=== PATIENT | male | born 1990 | race Caucasian/White ===

== ENCOUNTER 2016-09-07 15:10 | Emergency (ER) | payer OTHER ==
[~2016-09-07] VITALS: Ht 180.3 cm; Wt 62.1 kg
[2016-09-07 15:15] VITALS: TEMP 37.1; Ht 180.3 cm; Wt 62.1 kg
[2016-09-07] MEDS ORDERED: OMEG10007 PO (15:41)
[2016-09-07] MEDS ORDERED: PROPARACAINE HCL 0.5% OP SOLN 15 ML BTL OP STA (15:43)
[2016-09-07] MEDS ORDERED: KETOROLAC TROMETHAMINE 30 MG/ML VIAL IV STA (15:43)
[2016-09-07] MEDS ORDERED: AMPICILLIN/SULBACTAM SOD INJ 3,000 MG in SODIUM CHLORIDE 0.9% 100ML 100 ML IV ONE (15:45)
--- NOTE | 2016-09-07 15:52 | EMERGENCY ROOM VISIT NOTE ---
History First contact with patient: 15:31 Chief Complaint: EYE ASSESSMENT Stated Complaint: SERIOUS EYE INFECTION-SENT TO ER BY URGENT CARE History of Present Illness The patient is a 26 year old male who presents to the Emergency Room with complaints of right eye pain, swelling and drainage. The patient states that a few days ago he noticed what he thought was a pimple beneath the left eye and he squeezed it and it got better. The patient states that 2 days ago he noticed swelling to the right eye. He states that there is discharge in the eye is crusted shut in the morning. He denies any fevers or chills. He denies any decreased vision. He rates his discomfort a 10/10. He states it hurts to move his eyes. He denies any injury. He denies any chest pain or trouble breathing. He does not wear contacts. Review of Systems A 10 system review of systems was completed with positives and pertinent negatives listed in the HPI. Past Medical/Surgical History Medical Problems: (1) Hypertension Family History Hypertension Social History Smoking Status: Former Smoker Alcohol Use: none Marital Status: single Housing Status: lives with family Occupation Status: unemployed Current/Historical Medications Scheduled Amoxicillin & Pot Clavulanate (Augmentin 875-125 mg), 1 TAB PO BID Fish Oil ([place]-3), 1 CAP PO DAILY Allergies Coded Allergies: No Known Allergies (Unverified , 02/09/12) Physical Exam Vital Signs Date Time Temp Pulse Resp B/P Pulse Ox O2 Delivery O2 Flow Rate FiO2 09/07/16 16:41 78 16 116/66 97 Room Air 09/07/16 15:15 37.1 83 20 125/82 98 Room Air Right Eye Acuity: 20/20 Left Eye Acuity: 20/20 Physical Exam VITALS: Vitals are noted on the nurse's note and reviewed by myself. Vital signs stable. The patient is afebrile. GENERAL: This is a 26-year-old male, in no acute distress, nondiaphoretic, well- developed well-nourished. SKIN: There is no tenting of the skin. Capillary reflex less than 2 seconds. HEAD: Normocephalic atraumatic. EARS: External auditory canals clear, tympanic membranes pearly byrd without erythema or effusion bilaterally. EYES: There is right orbital edema, erythema and tenderness. The conjunctiva is injected. There is chemosis. There is purulent discharge. There is no hyphema or hypopyon. The patient reports pain with movement of the right eye. The left eye is normal. NOSE: Patent, turbinates without inflammation or discharge. No sinus tenderness. MOUTH: Mucous membranes moist. Tonsils are not enlarged. Pharynx without erythema or exudate. Uvula midline. Airway patent. Tongue does not deviate. NECK: Supple without nuchal rigidity. No lymphadenopathy. No thyromegaly. Cervical spine is nontender. No JVD. HEART: Regular rate and rhythm without murmurs gallops or rubs. LUNGS: Clear to auscultation bilaterally without wheezes, rales or rhonchi. No retractions or accessory muscle use. MUSCULOSKELETAL: No muscle atrophy, erythema, or edema noted. Full range of motion in all extremities. Normal gait. Strength 5/5 throughout. NEURO: Patient was alert and oriented to person place and time. No focal neurological deficits. Medical Decision & Procedures ER Provider Diagnostic Interpretation: CT OF THE ORBITS WITH CONTRAST CT DOSE: 425.24 mGycm CLINICAL HISTORY: Eye infection. Evaluate for orbital cellulitis. TECHNIQUE: Axial images of the orbits were obtained following intravenous injection of 94 cc Optiray 320 IV. Sagittal and coronal reconstructions were viewed. COMPARISON STUDY: Head CT October 14, 2015. FINDINGS: Visualized portions of the intracranial contents are unremarkable. There is mild polypoid mucosal thickening of the maxillary sinuses. There is no CT evidence for acute sinusitis. There is moderate right preseptal infiltration and edema consistent with cellulitis. There is no postseptal component. There is no rim-enhancing fluid collection to suggest an abscess. The globes are intact. Major vasculature of the upper neck is patent. Mastoid air cells are clear. IMPRESSION: Moderate right preseptal infiltration and edema consistent with preseptal sinusitis. No postseptal component. No rim enhancing fluid collection to suggest abscess. Laboratory Results 09/07/16 15:50 Red Blood Count 5.18, Mean Corpuscular Volume 84.7, Mean Corpuscular Hemoglobin 30.7, Mean Corpuscular Hemoglobin Concent 36.2, Mean Platelet Volume 9.3, Neutrophils (%) (Auto) 73.8, Lymphocytes (%) (Auto) 18.4, Monocytes (%) (Auto) 6.5, Eosinophils (%) (Auto) 0.9, Basophils (%) (Auto) 0.2, Neutrophils # (Auto) 7.09, Lymphocytes # (Auto) 1.77, Monocytes # (Auto) 0.63, Eosinophils # (Auto) 0.09, Basophils # (Auto) 0.02 09/07/16 15:50 Test 09/07/16 15:44 09/07/16 15:50 Bedside Hemoglobin 15.6 g/dl (14.0-18.0) Bedside Hematocrit 46 % (42-52) Bedside Sodium 141 mEq/L (135-144) Bedside Potassium 4.1 mEq/L (3.3-5.0) Bedside Chloride 99 mEq/L (101-112) Bedside Total CO2 28 mEq/l (24-31) Bedside Blood Urea Nitrogen 10 mg/dl (7-18) Bedside Creatinine 0.8 mg/dl (0.6-1.3) Bedside Glucose (other) 100 mg/dl (70-99) Bedside Ionized Calcium (Carisa) 1.18 mmol/l (1.12-1.32) White Blood Count 9.62 K/uL (4.8-10.8) Red Blood Count 5.18 M/uL (4.7-6.1) Hemoglobin 15.9 g/dL (14.0-18.0) Hematocrit 43.9 % (42-52) Mean Corpuscular Volume 84.7 fL (80-100) Mean Corpuscular Hemoglobin 30.7 pg (25-34) Mean Corpuscular Hemoglobin Concent 36.2 g/dl (32-36) Platelet Count 207 K/uL (130-400) Mean Platelet Volume 9.3 fL (7.4-10.4) Neutrophils (%) (Auto) 73.8 % Lymphocytes (%) (Auto) 18.4 % Monocytes (%) (Auto) 6.5 % Eosinophils (%) (Auto) 0.9 % Basophils (%) (Auto) 0.2 % Neutrophils # (Auto) 7.09 K/uL (1.4-6.5) Lymphocytes # (Auto) 1.77 K/uL (1.2-3.4) Monocytes # (Auto) 0.63 K/uL (0.11-0.59) Eosinophils # (Auto) 0.09 K/uL (0-0.5) Basophils # (Auto) 0.02 K/uL (0-0.2) RDW Standard Deviation 39.6 fL (36.4-46.3) RDW Coefficient of Variation 12.8 % (11.5-14.5) Immature Granulocyte % (Auto) 0.2 % Immature Granulocyte # (Auto) 0.02 K/uL (0.00-0.02) Anion Gap 10.0 mmol/L (3-11) Est Creatinine Clear Calc Drug Dose 119.1 ml/min Estimated GFR () 142.0 Estimated GFR (Non- 122.6 BUN/Creatinine Ratio 11.3 (10-20) Calcium Level 9.3 mg/dl (8.5-10.1) Total Bilirubin 0.9 mg/dl (0.2-1) Aspartate Amino Transf (AST/SGOT) 19 U/L (15-37) Alanine Aminotransferase (ALT/SGPT) 38 U/L (12-78) Alkaline Phosphatase 96 U/L (45-117) Total Protein 7.7 gm/dl (6.4-8.2) Albumin 4.2 gm/dl (3.4-5.0) Globulin 3.5 gm/dl (2.5-4.0) Albumin/Globulin Ratio 1.2 (0.9-2) Medications Administered Medications (Trade) Dose Ordered Sig/Ruthie Route Start Time Stop Time Status Last Admin Dose Admin Ampicillin Sodium/ Sulbactam Sodium/ Sodium Chloride (Unasyn Inj/Nss 100ml) 108 ml @ 200 mls/hr ONE ONCE IV 09/07/16 15:45 09/07/16 16:17 DC 09/07/16 16:03 200 MLS/HR Proparacaine HCl (Alcaine 0.5% Oph Soln) 2 drops NOW STAT OP 09/07/16 15:43 09/07/16 15:48 DC 09/07/16 16:03 2 DROPS Ketorolac Tromethamine (Toradol Inj) 30 mg NOW STAT IV 09/07/16 15:43 09/07/16 15:48 DC 09/07/16 16:03 30 MG Erythromycin (Erythromycin Oph Oint) 1 appln TID STAT OP 09/07/16 16:19 09/07/16 16:21 DC 09/07/16 17:07 1 APPLN Procedure The slit lamp was used to examine the right eye. There is no hyphema or hypopyon. There is chemosis and conjunctival injection. There is purulent discharge. There is no stye. There is no uptake of fluorescein. Intraocular pressure in the right is 19.8 and 21 in the left by auto tonometer ED Course The patient was seen and examined. Previous visits were reviewed. He does not have a fever or leukocytosis. He does not have any significant electrolyte abnormality. CT of the orbits with contrast reveals preseptal cellulitis but no evidence for orbital cellulitis The patient was given IV Unasyn Alcaine drops were instilled into the right eye with mild improvement in the pain He was given 30 mg IV Toradol He was given erythromycin ointment The patient's pain and swelling had markedly improved at the time of discharge The patient has had conjunctivitis, purulent drainage and what appears to be a preseptal cellulitis. The patient is nontoxic in appearance. He does not have fever or leukocytosis. There is no evidence for orbital cellulitis on CT imaging. The patient will be placed on Augmentin, erythromycin ointment. He is encouraged to take anti-inflammatories for pain and swelling. He could try cool compresses. He should return to the emergency department immediately with any fevers, worsening swelling, worsening pain or generalized worsening symptoms. The case was discussed with Dr. Bahena who agrees with the assessment and treatment plan Medical Decision The differential diagnosis includes periorbital cellulitis, orbital cellulitis, conjunctivitis, hypopyon, hyphema, chalazion, stye, among others Impression Primary Impression: Preseptal cellulitis of right eye Additional Impression: Conjunctivitis Departure Information Dispostion Home / Self-Care Condition GOOD Prescriptions Amoxicillin & Pot Clavulanate (Augmentin 875-125 mg) 1 Tab Tab 1 TAB PO BID for 7 Days, #14 TAB Prov: Madison Vernon PA-C 09/07/16 Referrals No Doctor, Assigned (PCP) Patient Instructions Conjunctivitis Infec Cause, ED Cellulitis Facial, My [facility] Additional Instructions Erythromycin ointment 1/4 cm ribbon to the lower eyelid every 8 hours for 5 days Augmentin 1 tablet every 12 hours for 7 days Return to the emergency Department with any worsening redness, swelling, warmth , fevers, difficulty with vision Otherwise, recheck with your family doctor next week if symptoms are not improving Problem Qualifiers Additional Impression: Conjunctivitis Conjunctivitis type: acute Acute conjunctivitis type: bacterial Laterality : right Qualified Codes: H10.31 - Unspecified acute conjunctivitis, right eye
[2016-09-07] MEDS ORDERED: OPTIRAY 320 IV PRN (16:00)
[2016-09-07 16:06] LABS: BASO % 0.2 %; BASO ABS # 0.02 K/uL (0-0.2); COMPLETE YES; EOS % 0.9 %; HEMATOCRIT 43.9 % (42-52); IG% 0.2 %; LYMPH % 18.4 %; LYMPH ABS # 1.77 K/uL (1.2-3.4); MEAN CELL VOLUME 84.7 fL (80-100); MEAN CORPUSCULAR HEMOGLOBIN 30.7 pg (25-34); MEAN CORPUSCULAR HGB CONC 36.2 g/dl (32-36); MEAN PLATELET VOLUME 9.3 fL (7.4-10.4); MONO % 6.5 %; NEUT % 73.8 %; PLATELET COUNT 207 K/uL (130-400); RED BLOOD COUNT 5.18 M/uL (4.7-6.1); WHITE BLOOD COUNT 9.62 K/uL (4.8-10.8)
[2016-09-07 16:09] LABS: ISTAT CREATININE 0.8 mg/dl (0.6-1.3); ISTAT HEMOGLOBIN 15.6 g/dl (14.0-18.0); ISTAT IONIZED CALCIUM 1.18 mmol/l (1.12-1.32)
[2016-09-07] MEDS ORDERED: ERYTHROMYCIN OP OINT 5 MG/GM 3.5 GM TUBE OP STA (16:19)
[2016-09-07 16:25] LABS: BUN/CREATININE RATIO 11.3 (10-20); CALCIUM 9.3 mg/dl (8.5-10.1); CREATININE 0.84 mg/dl (0.60-1.40)
[2016-09-07 16:27] LABS: ALB/GLOB RATIO 1.2 (0.9-2)
[2016-09-07 16:41] VITALS: BP 116/66; PULSE 78; O2SAT 97
--- NOTE | 2016-09-07 16:55 | DIAGNOSTIC IMAGING REPORT ---
CT OF THE ORBITS WITH CONTRAST CT DOSE: 425.24 mGycm CLINICAL HISTORY: Eye infection. Evaluate for orbital cellulitis. TECHNIQUE: Axial images of the orbits were obtained following intravenous injection of 94 cc Optiray 320 IV. Sagittal and coronal reconstructions were viewed. COMPARISON STUDY: Head CT October 14, 2015. FINDINGS: Visualized portions of the intracranial contents are unremarkable. There is mild polypoid mucosal thickening of the maxillary sinuses. There is no CT evidence for acute sinusitis. There is moderate right preseptal infiltration and edema consistent with cellulitis. There is no postseptal component. There is no rim-enhancing fluid collection to suggest an abscess. The globes are intact. Major vasculature of the upper neck is patent. Mastoid air cells are clear. IMPRESSION: Moderate right preseptal infiltration and edema consistent with preseptal sinusitis. No postseptal component. No rim enhancing fluid collection to suggest abscess. Electronically signed by: Александр Williamson M.D. 09/07/2016 4:53 PM Dictated Date/Time: 09/07/2016 4:45 PM
[2016-09-07] MEDS ORDERED: AMOX875T PO (17:06)
[2016-09-08] MEDS ORDERED: HYDR-5688 PO (01:47)
[2016-09-08] MEDS ORDERED: SULF800T23 PO (01:47)
[2016-09-12] MEDS ORDERED: CLIN300C2 PO (11:15)
== END 2016-09-07 17:09 | disposition home or self-care (01) ==
LOC: C.EDB 15:12 → C.EDD 17:09
DX: L03.211 Cellulitis of face (principal); H10.31 Unspecified acute conjunctivitis, right eye; I10 Essential (primary) hypertension; Z87.891 Personal history of nicotine dependence; Z82.49 Family history of ischemic heart disease and other diseases of the circulatory system

== ENCOUNTER 2016-09-08 00:08 | Emergency (ER) | payer OTHER ==
[~2016-09-08] VITALS: Ht 180.3 cm; Wt 63.3 kg
[~2016-09-08 00:08] MED LIST: AMOX875T PO; OMEG10007 PO
[2016-09-08 00:12] VITALS: TEMP 37.2; Ht 180.3 cm; Wt 63.3 kg
[2016-09-08] MEDS ORDERED: HYDROCODONE/ACETAMINOPHEN 7.5/325MG TAB PO STA (00:26)
[2016-09-08] MEDS ORDERED: KETOROLAC TROMETHAMINE 60 MG/2 ML VIAL IM STA (00:26)
[2016-09-08] MEDS ORDERED: SULFAMETHOXAZOLE/TRIMETHOPRIM DS 800/160MG TAB PO STA (00:32)
--- NOTE | 2016-09-08 00:33 | EMERGENCY ROOM VISIT NOTE ---
History Report prepared by Scribe: Romina Irene Under the Supervision of: Dr. Kira Swanson M.D. First contact with patient: 00:21 Chief Complaint: EYE PAIN Stated Complaint: EYE PAIN History of Present Illness The patient is a 26 year old male who presents to the Emergency Room with complaints of worsening right eye pain that began 2 days ago. He describes the pain as a hot knife in his eye. Both his eye and periorbital area are in pain. The pain is worse with movement of his eye and opening his eyelid. He also complains of right eye swelling. The patient went to [facility] initially yesterday for evaluation and was sent to the ER. He had a full eye examination in the ER including an orbit CT and had IV antibiotics. He was diagnosed with preseptal cellulitis of the eye and conjunctivitis. He was discharged home with erythromycin ointment and Augmentin. His pain was a 10/10 when he came to the ED yesterday and improved to an 8/10. Currently, his pain is greater than a 10/ 10. He does not have any known allergies. He denies any trauma to his eye. Source of History: patient Onset: 2 days ago Position: eye (right) Symptom Intensity: greater than 10/10 Quality: other (hot knife) Timing: worsening Modifying Factors (Worsening): movement (of eye ), other (opening eyelid) Note: Other symptoms: right eye swelling Review of Systems See HPI for pertinent positives & negatives. A total of 10 systems reviewed and were otherwise negative. Past Medical & Surgical Medical Problems: (1) Hypertension Family History Hypertension Social History Smoking Status: Never Smoker Alcohol Use: none Marital Status: single Housing Status: lives with family Occupation Status: unemployed Current/Historical Medications Scheduled Amoxicillin & Pot Clavulanate (Augmentin 875-125 mg), 1 TAB PO BID Fish Oil ([place]-3), 1 CAP PO DAILY Sulfa/Trimethoprim (Bactrim Ds 800MG/160MG), 1 TAB PO BID Scheduled PRN Hydrocodone/Acetaminophen 5MG/325MG ([place] 5MG/325MG), 1 TABLET PO Q4 PRN for Pain Allergies Coded Allergies: No Known Allergies (Unverified , 02/09/12) Physical Exam Vital Signs Date Time Temp Pulse Resp B/P Pulse Ox O2 Delivery O2 Flow Rate FiO2 09/08/16 01:54 70 18 134/77 99 Room Air 09/08/16 00:12 37.2 86 18 128/83 97 Room Air Physical Exam Vital signs reviewed. General: Well-appearing 26 year old male, in no significant distress. HEENT: Periorbital erythema and right eyelid swelling with no exudates appreciated. Extraocular muscles are intact. Some discomfort with upward gaze. Mild swelling of the lower left eyelid. No scleral icterus, PERRLA, neck supple. Atraumatic. Cardiovascular: Regular rate and rhythm, no extra sounds. Pulmonary: Clear to auscultation bilaterally, normal work of breathing. Abdomen: Soft, nontender, nondistended, positive bowel sounds. Musculoskeletal: Atraumatic, no peripheral edema. Neurologic: Patient awake alert and oriented x 3, full strength in all 4 extremities. Cranial nerves 2 through 12 grossly intact. Skin: Warm, dry, no rash Medical Decision & Procedures Medications Administered Medications (Trade) Dose Ordered Sig/Ruthie Route Start Time Stop Time Status Last Admin Dose Admin Ketorolac Tromethamine (Toradol Inj) 60 mg NOW STAT IM 09/08/16 00:26 09/08/16 00:29 DC 09/08/16 00:47 60 MG Acetaminophen/ Hydrocodone Bitart (Chalmers 7.5/325 Tab) 1 tab NOW STAT PO 09/08/16 00:26 09/08/16 00:29 DC 09/08/16 00:46 1 TAB Trimethoprim/ Sulfamethoxazole (Septra Ds 800/ 160MG Tab) 1 tab NOW STAT PO 09/08/16 00:32 09/08/16 00:33 DC 09/08/16 00:46 1 TAB ED Course 0027: Past medical records reviewed. The patient was evaluated in room B7. A complete history and physical examination was performed. Ordered Acetaminophen/ Hydrocodone Bitart 1 tab PO, Toradol Inj 60 mg IM, Trimethoprim/ Sulfamethoxazole 1 tab PO. 0140: Upon reevaluation, the patient is feeling better. I discussed findings with the patient. He verbalized agreement of the treatment plan. The patient was discharged home. Medical Decision Differential includes facial cellulitis, corneal abrasion, intraocular infection , preseptal cellulitis, postseptal cellulitis, orbital abscess. This patient was evaluated and appeared to be in no significant distress. Physical examination reveals a cellulitis of the right periorbital region. Extraocular muscles are intact. The patient had a full workup including a slit- lamp exam and CT scan earlier today. He was given IM Toradol and hydrocodone tablet for his pain. The patient was discharged on Augmentin after receiving IV Unasyn. Bactrim DS 1 tablet twice daily for 7 days will be added. The patient was given a short course of hydrocodone/APAP for his pain. He will follow-up with his primary care provider this week for reevaluation and return to the ER for worsening of symptoms or any medical concerns. Impression Primary Impression: Preseptal cellulitis of right eye Scribe Attestation The scribe's documentation has been prepared under my direction and personally reviewed by me in its entirety. I confirm that the note above accurately reflects all work, treatment, procedures, and medical decision making performed by me. Departure Information Dispostion Home / Self-Care Prescriptions Hydrocodone/Acetaminophen 5MG/325MG ([place]mers 5MG/325MG) Tab 1 TABLET PO Q4 Y for Pain, #14 TAB Prov: Kira Swanson M.D. 09/08/16 Sulfa/Trimethoprim (Bactrim Ds 800MG/160MG) Tab 1 TAB PO BID, #14 TAB Prov: Kira Swanson M.D. 09/08/16 Referrals No Doctor, Assigned (PCP) Patient Instructions [facility] Additional Instructions Diagnosis: Preseptal cellulitis Continue Augmentin 875 mg twice daily as prescribed. Bactrim DS 1 tablet twice daily for 7 days. Chalmers one tablet every 4 hours as needed for severe pain. Do not drive or take Tylenol with this medication. Drink plenty of fluids. Follow-up with your primary care physician this week for reevaluation return to the ER for worsening of symptoms or any medical concerns.
[2016-09-08] MEDS ORDERED: SULF800T23 PO ×2 (01:47)
[2016-09-08] MEDS ORDERED: HYDR-5688 PO ×2 (01:47)
[2016-09-08 01:54] VITALS: BP 134/77; PULSE 70; O2SAT 99
[2016-09-12] MEDS ORDERED: CLIN300C2 PO ×2 (11:15)
== END 2016-09-08 02:02 | disposition home or self-care (01) ==
LOC: C.EDB 00:09
DX: L02.01 Cutaneous abscess of face (principal); I10 Essential (primary) hypertension; Z79.899 Other long term (current) drug therapy; Z82.49 Family history of ischemic heart disease and other diseases of the circulatory system

== ENCOUNTER 2016-09-10 15:29 | Inpatient (IN) | payer OTHER ==
[~2016-09-10] VITALS: Ht 180.3 cm; Wt 63.9 kg
[~2016-09-10 15:29] MED LIST changes: +HYDR-5688 PO; +SULF800T23 PO
--- NOTE | 2016-09-10 17:42 | EMERGENCY ROOM VISIT NOTE ---
History Report prepared by Amado: Madison Andujar Under the Supervision of: Dr. Oren Ramos M.D. First contact with patient: 17:15 Chief Complaint: EYE ASSESSMENT Stated Complaint: RT EYE IS SWOLLEN SHUT,REVISIT History of Present Illness The patient is a 26 year old male who presents to the Emergency Room with complaints of persistent, worsening right eye swelling that began 4-5 days ago. He currently rates his discomfort as a 4/10 in severity. The patient states that he woke up 5 days ago and noticed the swelling. He states that as the swelling worsened, he decided to seek medical attention in the emergency department. The patient notes that he had a normal CT scan. He states that he was placed on Azithromycin, Augmentin, Bactrim, and eye drops. The patient states that last night he developed a fever of 103 degrees Fahrenheit and noticed purulent drainage from his eye. He states that his eye was initially painful, but states that the pain was alleviated with the pain medications. The patient notes that he is beginning to notice a loss of vision to his right eye. He denies any foreign body to the eye. The patient denies any body aches or headaches. He denies any history of diabetes or active medical problems. Source of History: patient, friend Onset: 4-5 days ago Position: eye (right) Symptom Intensity: 4/10 Quality: other (swelling) Timing: worsening, other (persistent) Associated Symptoms: + fevers, No headache Note: Associated Symptoms: loss of vision in right eye, drainage from right eye Review of Systems See HPI for pertinent positives & negatives. A total of 10 systems reviewed and were otherwise negative. Past Medical & Surgical Medical Problems: (1) Hypertension (2) Periorbital cellulitis Old medical records were reviewed. Nurse's notes were reviewed and I agree with. Family History Hypertension Social History Smoking Status: Former Smoker Alcohol Use: none Marital Status: single Housing Status: lives with family Occupation Status: unemployed Current/Historical Medications Scheduled Amoxicillin & Pot Clavulanate (Augmentin 875-125 mg), 1 TAB PO BID Fish Oil ([place]-3), 1 CAP PO DAILY Sulfa/Trimethoprim (Bactrim Ds 800MG/160MG), 1 TAB PO BID Scheduled PRN Hydrocodone/Acetaminophen 5MG/325MG ([place] 5MG/325MG), 1 TABLET PO Q4 PRN for Pain Allergies Coded Allergies: No Known Allergies (Unverified , 09/10/16) Physical Exam Vital Signs Date Time Temp Pulse Resp B/P Pulse Ox O2 Delivery O2 Flow Rate FiO2 09/10/16 20:15 62 18 121/80 99 Room Air 09/10/16 18:49 71 18 110/74 97 Room Air 09/10/16 17:35 36.8 75 18 114/69 97 Room Air 09/10/16 15:46 37.3 91 18 115/72 95 Room Air Right Eye Acuity: 20/30 Left Eye Acuity: 20/20 Physical Exam General: Well developed well nourished, non-toxica appearing young male in no acute distress, breathing comfortably on room air. Normal speech, presenting with significant swelling of the right eye. HEENT: Normal cephalic atraumatic. Swelling to the right upper eye lid and lower eyelid. Mild discoloration. Conjunctivitis and redness of the sclera. Purulent discharge from the lateral eye and right upper eyelid. There does appear to be a stye in the upper eyelid laterally that goes through to the inside. No proptosis. Extraocular movements are intact. Oropharynx is pink with moist mucous membranes. No swelling of the mouth lips or tongue. Neck: Supple with a midline trachea. No meningeal signs or stiffness, no JVD or bruits. No Stridor. Chest: Clear to auscultation bilaterally. No wheezes or rhonchi. No increased work of breathing. Heart: regular rate and rhythm. Abdomen: Soft nontender, nondistended without rebound guarding or rigidity. Extremities: No cyanosis clubbing or edema. No calf tenderness or assymetry Spine/Back. Non tender to palpation. No CVA tenderness Skin: Good turgor without rashes. Neurologic exam: Cranial nerves two through 12 are intact. Motor and sensation are intact and symmetrical throughout. Medical Decision & Procedures ER Provider Diagnostic Interpretation: CT results as stated below per my review and radiologist interpretation: CT orbits ORBITS/SELLA/TEMP WITH CLINICAL HISTORY: eval orbital cellulitis on right cellulitis TECHNIQUE: Transaxial acquisition with multi axial reformatted images COMPARISON STUDY: 09/07/2016 FINDINGS: Unchanged to slightly improved exam. Mild right preorbital cellulitis. No evidence for retroseptal involvement. Globes are symmetric. No evidence for true abscess or collection. All major osseous structures appear to be intact. IMPRESSION: Mild right preorbital cellulitis with no evidence for drainable abscess or collection. 2. The retroseptal structures are intact with no retro-orbital involvement. 3. Mild improvement from the prior study Electronically signed by: Lucas Castro M.D. 09/10/2016 7:08 PM Dictated Date/Time: 09/10/2016 7:05 PM Laboratory Results 09/10/16 17:51 Red Blood Count 4.75, Mean Corpuscular Volume 85.5, Mean Corpuscular Hemoglobin 30.5, Mean Corpuscular Hemoglobin Concent 35.7, Mean Platelet Volume 9.1, Neutrophils (%) (Auto) 57.0, Lymphocytes (%) (Auto) 33.7, Monocytes (%) (Auto) 6.0, Eosinophils (%) (Auto) 2.4, Basophils (%) (Auto) 0.7, Neutrophils # (Auto) 2.57, Lymphocytes # (Auto) 1.52, Monocytes # (Auto) 0.27, Eosinophils # (Auto) 0.11, Basophils # (Auto) 0.03 09/10/16 17:51 Test 09/10/16 17:51 White Blood Count 4.51 K/uL (4.8-10.8) Red Blood Count 4.75 M/uL (4.7-6.1) Hemoglobin 14.5 g/dL (14.0-18.0) Hematocrit 40.6 % (42-52) Mean Corpuscular Volume 85.5 fL (80-100) Mean Corpuscular Hemoglobin 30.5 pg (25-34) Mean Corpuscular Hemoglobin Concent 35.7 g/dl (32-36) Platelet Count 186 K/uL (130-400) Mean Platelet Volume 9.1 fL (7.4-10.4) Neutrophils (%) (Auto) 57.0 % Lymphocytes (%) (Auto) 33.7 % Monocytes (%) (Auto) 6.0 % Eosinophils (%) (Auto) 2.4 % Basophils (%) (Auto) 0.7 % Neutrophils # (Auto) 2.57 K/uL (1.4-6.5) Lymphocytes # (Auto) 1.52 K/uL (1.2-3.4) Monocytes # (Auto) 0.27 K/uL (0.11-0.59) Eosinophils # (Auto) 0.11 K/uL (0-0.5) Basophils # (Auto) 0.03 K/uL (0-0.2) RDW Standard Deviation 39.8 fL (36.4-46.3) RDW Coefficient of Variation 12.7 % (11.5-14.5) Immature Granulocyte % (Auto) 0.2 % Immature Granulocyte # (Auto) 0.01 K/uL (0.00-0.02) Anion Gap 12.0 mmol/L (3-11) Est Creatinine Clear Calc Drug Dose 106.1 ml/min Estimated GFR () 126.1 Estimated GFR (Non- 108.8 BUN/Creatinine Ratio 18.8 (10-20) Calcium Level 9.0 mg/dl (8.5-10.1) Total Bilirubin 0.3 mg/dl (0.2-1) Direct Bilirubin < 0.1 mg/dl (0-0.2) Aspartate Amino Transf (AST/SGOT) 18 U/L (15-37) Alanine Aminotransferase (ALT/SGPT) 30 U/L (12-78) Alkaline Phosphatase 79 U/L (45-117) Total Protein 7.4 gm/dl (6.4-8.2) Albumin 3.8 gm/dl (3.4-5.0) Lipase 180 U/L (73-393) Laboratory studies as stated above per my review. Medications Administered Medications (Trade) Dose Ordered Sig/Ruthie Route Start Time Stop Time Status Last Admin Dose Admin Ampicillin Sodium/ Sulbactam Sodium/ Sodium Chloride (Unasyn Inj/Nss 100ml) 108 ml @ 200 mls/hr ONE ONCE IV 09/10/16 17:45 09/10/16 18:17 DC 09/10/16 18:13 200 MLS/HR ED Course 1734: Past medical records reviewed. The patient was evaluated in room A4B, and a complete history and physical examination were performed. 1745: Ordered Ampicillin Sodium/Sulbactam Sodium 3000 mg/Sodium Chloride 108 ml @ 200 mls/hr IV. 1804: I discussed the patients case with Dr. Jack, Barber Shop Operator. He suggests a repeat CT scan and states that he will be in to evaluate the patient. 181: I reevaluated the patient and I updated him on the treatment plan. 1847: I reevaluated the patient and he is going for his CT scan shortly. 1942: I reevaluated the patient and Dr. Jack, Ophthalmology is at bedside with the patient. He feels that the patient should come in for IV antibiotics. The patient is in agreement with the treatment plan and understands all the exam findings. 2029: I discussed the patients case with YANELI Leung. He will evaluate the patient for further treatment. Medical Decision Differentials include, but are not limited to; orbital cellulitis, conjunctivitis, cellulitis. This patient comes in as described above. He has apersistent is infection in and around his right eye. He's been treated with Bactrim and Augmentin as an outpatient but is not getting any betterd. He's also been using erythromycin ointment. He had a CAT scan 3 days ago which showed preseptal cellulitis. I did consult Dr. Jack, the dog trainer on-call. He requested we do a CAT scan and he came in and saw the patient. CAT scan actually showed slight improvement and has no evidence of drainable abscess or orbital cellulitis. He has no electrolyte or metabolic abnormalities. He has no elevation white count. He was given Unasyn [address] Jack did feel that he needs to be admitted for IV antibiotics as his preseptal cellulitis is not getting better as an outpatient. I did consult the [facility] hospitalist and the patient will be admitted for further treatment and evaluation and IV antibiotics. Consults Time Called: 1799 Consulting Physician: Dr. Jack, Opthalmology Returned Call: 1803 I discussed the patients case with Dr. Jack, Barber Shop Operator. He suggests a repeat CT scan and states that he will be in to evaluate the patient. Additional Consults: Time Called: 1948 Consulted Physician: Dr. Suggs Returned Call: 2029 Additional Comments: I discussed the patients case with YANELI Leung. He will evaluate the patient for further treatment. Impression Primary Impression: Periorbital cellulitis Scribe Attestation The scribe's documentation has been prepared under my direction and personally reviewed by me in its entirety. I confirm that the note above accurately reflects all work, treatment, procedures, and medical decision making performed by me. Departure Information Dispostion Being Evaluated By Hospitalist Referrals No Doctor, Assigned (PCP)
[2016-09-10] MEDS ORDERED: AMPICILLIN/SULBACTAM SOD INJ 3,000 MG in SODIUM CHLORIDE 0.9% 100ML 100 ML IV ONE (17:45)
[2016-09-10 18:06] LABS: BASO % 0.7 %; BASO ABS # 0.03 K/uL (0-0.2); COMPLETE YES; EOS % 2.4 %; HEMATOCRIT 40.6 % (42-52); IG% 0.2 %; LYMPH % 33.7 %; LYMPH ABS # 1.52 K/uL (1.2-3.4); MEAN CELL VOLUME 85.5 fL (80-100); MEAN CORPUSCULAR HEMOGLOBIN 30.5 pg (25-34); MEAN CORPUSCULAR HGB CONC 35.7 g/dl (32-36); MEAN PLATELET VOLUME 9.1 fL (7.4-10.4); PLATELET COUNT 186 K/uL (130-400); RED BLOOD COUNT 4.75 M/uL (4.7-6.1); WHITE BLOOD COUNT 4.51 K/uL (4.8-10.8)
[2016-09-10 18:22] LABS: ALT/SGPT 30 U/L (12-78); BLOOD UREA NITROGEN 18 mg/dl (7-18); BUN/CREATININE RATIO 18.8 (10-20); CARBON DIOXIDE 24 mmol/L (21-32); CHLORIDE 105 mmol/L (98-107); CREATININE 0.97 mg/dl (0.60-1.40); GLUCOSE 95 mg/dl (70-99); POTASSIUM 4.4 mmol/L (3.5-5.1); SODIUM 141 mmol/L (136-145)
[2016-09-10 18:24] LABS: ALKALINE PHOSPHATASE 79 U/L (45-117); AST/SGOT 18 U/L (15-37)
[2016-09-10] MEDS ORDERED: OPTIRAY 320 IV PRN (18:30)
--- NOTE | 2016-09-10 19:10 | DIAGNOSTIC IMAGING REPORT ---
CT orbits ORBITS/SELLA/TEMP WITH CLINICAL HISTORY: eval orbital cellulitis on right cellulitis TECHNIQUE: Transaxial acquisition with multi axial reformatted images COMPARISON STUDY: 09/07/2016 FINDINGS: Unchanged to slightly improved exam. Mild right preorbital cellulitis. No evidence for retroseptal involvement. Globes are symmetric. No evidence for true abscess or collection. All major osseous structures appear to be intact. IMPRESSION: Mild right preorbital cellulitis with no evidence for drainable abscess or collection. 2. The retroseptal structures are intact with no retro-orbital involvement. 3. Mild improvement from the prior study Electronically signed by: Lucas Castro M.D. 09/10/2016 7:08 PM Dictated Date/Time: 09/10/2016 7:05 PM
--- NOTE | 2016-09-10 20:10 | Ophthalmology Consultation ---
Ophthalmology Consultation Date of Service: Sep 10, 2016. Requested By: [facility] History of Present Illness: 26 y/o white male seen in ED multiple times over last several days for right eyelid swelling/edema. Getting worse on outpt oral abx Bactrim and Augmentin. Developed fever 103 last evening per pt. CC: right eye pain, redness Vision: decreased Location (of CC): OD Quality/Severity: moderate-severe Duration: 09/03/16 Timing: getting worse Context: has had multiple styes Associated Signs/Symptoms: febrile to 103 last evening Modifying Factors: discharge No other eye complaints. Mood and Affect: normal Past Ocular History: Right Eye: 1. styes Left Eye: 1. styes Medications: using augmentin and bactrim Relevant Past Medical History: none [facility] Near card OD: 20/20 OS: 20/20 IOP: 19 and 20 VF: full to count fingers OU Motility: full OU External: ++erythema/edema/crusting upper outer eyelid OD, old resolving stye lower lid OS SLE: Lids/Lashes: ++erythema/edema/crusting upper outer eyelid OD; wnl OS Conjunctiva/Sclera: +jace and injection OD; quiet OS Cornea: clear OU Anterior Chamber: deep and quiet OU Iris: normal OU; no NVI OU Lens: clear OU Dilated fundus exam OD: vitreous: clear optic nerve: 0.4, no edema/pallor/NVD macula: wnl vessels: wnl Midperiphery: wnl periphery: no RT/RD Dilated fundus exam OS: vitreous: clear optic nerve: 0.4, no edema/pallor/NVD macula: wnl vessels: wnl Midperiphery: wnl periphery: no RT/RD Assessment and Plan: 1. Preseptal Cellulitis OD -failing tx on outpt oral abx Augmentin and Bactrim -CT shows no subperiosteal abscess or orbital involvement -recommend admission for IV abx (Unasyn 3gm q6hrs would be good choice) -bacitracin ophth oint qid OD -warm compresses -if significant improvement after 24-48hours of IV abx, would be reasonable to finish tx on outpt abx Musa Jack DO
[2016-09-10] MEDS ORDERED: IV FLUIDS COMPLETED PRN (22:00)
[2016-09-10] MEDS ORDERED: ALUMINUM/MAGNESIUM/SIMETH (MAALOX MAX) 30 ML UDC PO PRN (22:00)
[2016-09-10] MEDS ORDERED: MAGNESIUM HYDROXIDE SUSP 30 ML UDC PO PRN (22:00)
[2016-09-10] MEDS ORDERED: ZOLPIDEM TARTRATE 5 MG TAB PO PRN (22:00)
[2016-09-10] MEDS ORDERED: ACETAMINOPHEN 325 MG TAB PO PRN (22:00)
[2016-09-10] MEDS ORDERED: ONDANSETRON INJ 2 MG/ML 2 ML VIAL IV PRN (22:00)
--- NOTE | 2016-09-10 22:14 | History and Physical ---
History & Physical Date & Time of Service: Sep 10, 2016 at 21:53 Chief Complaint: Rt Eye Is Swollen Shut,Revisit Primary Care Physician: No Doctor, Assigned History of Present Illness Source: patient 26 y/o M who denies a significant PMH. He had a small stye on his R eye and then developed surrounding inflammation and scleral redness over the course of 3 -4 days. He states that he had a temp of 103 one day prior. He had been to the ER 3 days ago and had been prescribed Augmentin and Bactrim but describes worsening pain and inflammation. He returned to the ER and was evaluated by ophthalmology who have advised on admission for IV antibiotics. A CT of the orbit revealed preorbital cellulitis. Family History Hypertension Social History Currently unemployed, quit smoking 7 months ago, does not drink and denies drug use. Smoking Status: Former Smoker Marital Status: single Occupational Status: unemployed Allergies Coded Allergies: No Known Allergies (Unverified , 09/10/16) Home Medications Scheduled Amoxicillin & Pot Clavulanate (Augmentin 875-125 mg), 1 TAB PO BID Fish Oil ([place]-3), 1 CAP PO DAILY Sulfa/Trimethoprim (Bactrim Ds 800MG/160MG), 1 TAB PO BID Scheduled PRN Hydrocodone/Acetaminophen 5MG/325MG ([place] 5MG/325MG), 1 TABLET PO Q4 PRN for Pain Review of Systems Constitutional: + chills, + fever, No sweats Eyes: + eye pain, + redness, No worsening of vision ENT: No hearing loss, No nasal symptoms, No unusual epistaxis Respiratory: No cough, No sputum, No wheezing Cardiovascular: No PND, No chest pain, No orthopnea Abdomen: No nausea, No pain, No vomiting Musculoskeletal: No joint pain, No muscle pain Genitourinary - Male: No dysuria, No hematuria, No urinary frequency, No urinary urgency Neurologic: No memory loss, No paralysis Endocrine: No fatigue Hematologic / Lymphatic: No abnormal bleeding/bruising Integumentary: No rash Allergic / Immunologic: No environmental allergies Physical Exam Vital Signs Date Time Temp Pulse Resp B/P Pulse Ox O2 Delivery O2 Flow Rate FiO2 09/10/16 20:15 62 18 121/80 99 Room Air 09/10/16 18:49 71 18 110/74 97 Room Air 09/10/16 17:35 36.8 75 18 114/69 97 Room Air 09/10/16 15:46 37.3 91 18 115/72 95 Room Air General Appearance: WD/WN, no apparent distress Head: normocephalic, atraumatic Eyes: + pertinent finding (Redness and inflammation without exudate surrounding the R eye - scleral injection) ENT: normal ENT inspection, hearing grossly normal, pharynx normal Neck: supple, no JVD Respiratory/Chest: chest non-tender, lungs clear, normal breath sounds, no respiratory distress, no accessory muscle use Cardiovascular: regular rate, rhythm, no edema, no gallop, no JVD, no murmur, normal peripheral pulses Abdomen/GI: normal bowel sounds, non tender, soft Back: normal inspection, no CVA tenderness Extremities/Musculoskelatal: normal inspection, no calf tenderness, normal capillary refill, no pedal edema, normal range of motion Neurologic/Psych: drill press operator helper II-XII nml as tested, no motor/sensory deficits, alert, normal mood/affect, normal reflexes, oriented x 3 Skin: normal color, warm/dry, no rash Diagnostics Laboratory Results Results Past 24 Hours Test 09/10/16 17:51 Range/Units White Blood Count 4.51 4.8-10.8 K/uL Red Blood Count 4.75 4.7-6.1 M/uL Hemoglobin 14.5 14.0-18.0 g/dL Hematocrit 40.6 42-52 % Mean Corpuscular Volume 85.5 80-100 fL Mean Corpuscular Hemoglobin 30.5 25-34 pg Mean Corpuscular Hemoglobin Concent 35.7 32-36 g/dl Platelet Count 186 130-400 K/uL Mean Platelet Volume 9.1 7.4-10.4 fL Neutrophils (%) (Auto) 57.0 % Lymphocytes (%) (Auto) 33.7 % Monocytes (%) (Auto) 6.0 % Eosinophils (%) (Auto) 2.4 % Basophils (%) (Auto) 0.7 % Neutrophils # (Auto) 2.57 1.4-6.5 K/uL Lymphocytes # (Auto) 1.52 1.2-3.4 K/uL Monocytes # (Auto) 0.27 0.11-0.59 K/uL Eosinophils # (Auto) 0.11 0-0.5 K/uL Basophils # (Auto) 0.03 0-0.2 K/uL RDW Standard Deviation 39.8 36.4-46.3 fL RDW Coefficient of Variation 12.7 11.5-14.5 % Immature Granulocyte % (Auto) 0.2 % Immature Granulocyte # (Auto) 0.01 0.00-0.02 K/uL Sodium Level 141 136-145 mmol/L Potassium Level 4.4 3.5-5.1 mmol/L Chloride Level 105 98-107 mmol/L Carbon Dioxide Level 24 21-32 mmol/L Anion Gap 12.0 3-11 mmol/L Blood Urea Nitrogen 18 7-18 mg/dl Creatinine 0.97 0.60-1.40 mg/dl Est Creatinine Clear Calc Drug Dose 106.1 ml/min Estimated GFR () 126.1 Estimated GFR (Non- 108.8 BUN/Creatinine Ratio 18.8 10-20 Random Glucose 95 70-99 mg/dl Calcium Level 9.0 8.5-10.1 mg/dl Total Bilirubin 0.3 0.2-1 mg/dl Direct Bilirubin < 0.1 0-0.2 mg/dl Aspartate Amino Transf (AST/SGOT) 18 15-37 U/L Alanine Aminotransferase (ALT/SGPT) 30 12-78 U/L Alkaline Phosphatase 79 45-117 U/L Total Protein 7.4 6.4-8.2 gm/dl Albumin 3.8 3.4-5.0 gm/dl Lipase 180 73-393 U/L Diagnostic Radiology CT orbit 1. Mild right preorbital cellulitis with no evidence for drainable abscess or collection. 2. The retroseptal structures are intact with no retro-orbital involvement. 3. Mild improvement from the prior study Impression Assessment and Plan 26 y/o M who denies a significant PMH. He had a small stye on his R eye and then developed surrounding inflammation and scleral redness over the course of 3 -4 days. He states that he had a temp of 103 one day prior. He had been to the ER 3 days ago and had been prescribed Augmentin and Bactrim but describes worsening pain and inflammation. He returned to the ER and was evaluated by ophthalmology who have advised on admission for IV antibiotics. A CT of the orbit revealed preorbital cellulitis. will treat with Vanc and Unasyn - reevaluate AM - bacitracin QID per Ophtho IVF and pain control as needed Full code - Lovenox prophylaxis Total time for this admit including discuaaion with ER attending and review of Optho rec, imaging, labs - 26 min Level of Care Med/Surg Resuscitation Status FULL RESUSCITATION VTE Prophylaxis VTE Risk Assessment Done? Y/N: Yes Risk Level: Very Low Given or contraindicated: Enoxaparin (Lovenox)SQ
[2016-09-10] MEDS ORDERED: TRAMADOL HCL 50 MG TAB PO PRN (22:30)
[2016-09-10 22:35] VITALS: BP 111/74; PULSE 66; TEMP 36.5; O2SAT 95
[2016-09-10] MEDS ORDERED: SODIUM CHLORIDE 0.9% 1000ML 1,000 ML IV SCH (23:30)
[2016-09-10] MEDS ORDERED: POLYETHYLENE (MIRALAX) 17 GM PACK PO PRN (23:30)
[2016-09-10] MEDS ORDERED: VANCOMYCIN INJ 1,600 MG in SODIUM CHLORIDE 0.9% 500ML 500 ML IV SCH (23:30)
[2016-09-10] MEDS: AMPICILLIN/SULBACTAM SOD INJ 3,000 MG in SODIUM CHLORIDE 0.9% 100ML 100 ML IV SCH (23:38)
[2016-09-10 23:41] VITALS: BP 111/74; PULSE 66; TEMP 36.5; O2SAT 95; Ht 180.3 cm; Wt 63.9 kg
[2016-09-11 05:59] LABS: INR 1.1 (0.9-1.1); PROTHROMBIN TIME (PATIENT) 11.4 SECONDS (9.0-12.0)
[2016-09-11] MEDS: AMPICILLIN/SULBACTAM SOD INJ 3,000 MG in SODIUM CHLORIDE 0.9% 100ML 100 ML IV SCH ×4 (06:13→23:29)
[2016-09-11 08:01] VITALS: BP 109/68; PULSE 58; TEMP 37; O2SAT 98
[2016-09-11] MEDS: BACITRACIN OP OINT 3.5 GM TUBE OP SCH ×4 (08:10→20:40)
[2016-09-11] MEDS: LACTOBACILLUS ACIDOPHILUS (FLORANEX) TAB PO SCH ×3 (08:11→17:31)
[2016-09-11] MEDS: ENOXAPARIN 40 MG/0.4 ML SYR SQ SCH (08:11)
--- NOTE | 2016-09-11 12:26 | Progress Note ---
Subjective Date of Service: Sep 11, 2016. Subjective Pt evaluation today including: conversation w/ patient, physical exam, chart review, lab review, review of studies, review of inpatient medication list Problem List Medical Problems: (1) Conjunctivitis Status: Acute (2) Drug overdose Status: Acute (3) Periorbital cellulitis Status: Acute (4) Preseptal cellulitis of right eye Status: Acute (5) Seizure Status: Acute Review of Systems Constitutional: No chills, No fever Eyes: + discharge, No diplopia, No eye pain Respiratory: No cough, No dyspnea on exertion, No shortness of breath, No sputum, No wheezing Cardiac: No chest pain, No orthopnea Abdomen: No constipation, No diarrhea, No nausea, No pain, No vomiting Musculoskeletal: No joint pain, No muscle pain Male : No dysuria, No urinary frequency Objective Vital Signs Date Time Temp Pulse Resp B/P Pulse Ox O2 Delivery O2 Flow Rate FiO2 09/11/16 09:54 Room Air 09/11/16 08:01 37.0 58 16 109/68 98 Room Air 09/11/16 00:01 Room Air 09/10/16 23:41 36.5 66 20 111/74 95 Room Air 09/10/16 22:35 36.5 66 20 111/74 95 Room Air 09/10/16 22:15 70 18 123/72 99 09/10/16 20:15 62 18 121/80 99 Room Air 09/10/16 18:49 71 18 110/74 97 Room Air 09/10/16 17:35 36.8 75 18 114/69 97 Room Air 09/10/16 15:46 37.3 91 18 115/72 95 Room Air Physical Exam General Appearance: WD/WN, no apparent distress Eyes: PERRL, EOMI, + pertinent finding (scleral redness, discharge noted) Neck: supple, no adenopathy Respiratory/Chest: lungs clear, normal breath sounds Cardiovascular: no edema, no gallop Abdomen: non tender, soft Neurologic/Psychiatric: alert, normal mood/affect, oriented x 3 Laboratory Results Last 24 Hours Test 09/10/16 17:51 09/11/16 05:35 White Blood Count 4.51 K/uL Red Blood Count 4.75 M/uL Hemoglobin 14.5 g/dL Hematocrit 40.6 % Mean Corpuscular Volume 85.5 fL Mean Corpuscular Hemoglobin 30.5 pg Mean Corpuscular Hemoglobin Concent 35.7 g/dl Platelet Count 186 K/uL Mean Platelet Volume 9.1 fL Neutrophils (%) (Auto) 57.0 % Lymphocytes (%) (Auto) 33.7 % Monocytes (%) (Auto) 6.0 % Eosinophils (%) (Auto) 2.4 % Basophils (%) (Auto) 0.7 % Neutrophils # (Auto) 2.57 K/uL Lymphocytes # (Auto) 1.52 K/uL Monocytes # (Auto) 0.27 K/uL Eosinophils # (Auto) 0.11 K/uL Basophils # (Auto) 0.03 K/uL RDW Standard Deviation 39.8 fL RDW Coefficient of Variation 12.7 % Immature Granulocyte % (Auto) 0.2 % Immature Granulocyte # (Auto) 0.01 K/uL Sodium Level 141 mmol/L Potassium Level 4.4 mmol/L Chloride Level 105 mmol/L Carbon Dioxide Level 24 mmol/L Anion Gap 12.0 mmol/L Blood Urea Nitrogen 18 mg/dl Creatinine 0.97 mg/dl Est Creatinine Clear Calc Drug Dose 106.1 ml/min Estimated GFR () 126.1 Estimated GFR (Non- 108.8 BUN/Creatinine Ratio 18.8 Random Glucose 95 mg/dl Calcium Level 9.0 mg/dl Total Bilirubin 0.3 mg/dl Direct Bilirubin < 0.1 mg/dl Aspartate Amino Transf (AST/SGOT) 18 U/L Alanine Aminotransferase (ALT/SGPT) 30 U/L Alkaline Phosphatase 79 U/L Total Protein 7.4 gm/dl Albumin 3.8 gm/dl Lipase 180 U/L Prothrombin Time 11.4 SECONDS Prothromb Time International Ratio 1.1 Assessment and Plan 26 y/o M who denies a significant PMH. He had a small stye on his R eye and then developed surrounding inflammation and scleral redness over the course of 3 -4 days. He states that he had a temp of 103 one day prior. He had been to the ER 3 days ago and had been prescribed Augmentin and Bactrim but describes worsening pain and inflammation. He returned to the ER and was evaluated by ophthalmology who have advised on admission for IV antibiotics. A CT of the orbit revealed preorbital cellulitis. Cont unasyn and bacitracin, likely DC in next 24 hrs
[2016-09-11 15:31] VITALS: BP 118/68; PULSE 58; TEMP 36.7; O2SAT 100
[2016-09-11 16:00] VITALS: O2SAT 100
[2016-09-11 20:00] VITALS: O2SAT 100
[2016-09-12] MEDS: AMPICILLIN/SULBACTAM SOD INJ 3,000 MG in SODIUM CHLORIDE 0.9% 100ML 100 ML IV SCH (06:20)
[2016-09-12 07:35] VITALS: BP 111/67; PULSE 58; TEMP 36.5; O2SAT 99
[2016-09-12 08:00] VITALS: O2SAT 99
[2016-09-12] MEDS: BACITRACIN OP OINT 3.5 GM TUBE OP SCH (08:34)
[2016-09-12] MEDS: LACTOBACILLUS ACIDOPHILUS (FLORANEX) TAB PO SCH (08:34)
[2016-09-12] MEDS: ENOXAPARIN 40 MG/0.4 ML SYR SQ SCH (08:34)
[2016-09-12] MEDS ORDERED: CLIN300C2 PO ×2 (11:15)
--- NOTE | 2016-09-12 11:17 | Discharge Instructions ---
Discharge Instructions Admission Reason for Admission: Periorbital Cellulitis Discharge Discharge Diagnosis / Problem: Periorbital cellulitis Discharge Goals Goal(s): Decrease discomfort, Improve function, Increase independence, Improve disease control, Diagnostic testing, Therapeutic intervention Activity Recommendations Activity Limitations: resume your previous activity Shower/Bathe: no limitations . Instructions / Follow-Up Instructions / Follow-Up Patient to be discharged home Please continue to take antibiotic clindamycin 4 times a day for a week If worsening redness, swelling or visual changes please report to ER Current Hospital Diet Patient's current hospital diet: Regular Diet Discharge Diet Recommended Diet: Regular Diet Pending Studies Studies pending at discharge: no Medical Emergencies . Who to Call and When: Medical Emergencies: If at any time you feel your situation is an emergency, please call 911 immediately. . Non-Emergent Contact Non-Emergency issues call your: Primary Care Provider Call Non-Emergent contact if: your pain is worsening . . "Provider Documentation" section prepared by Babak Nicolas. VTE Core Measure Inpt VTE Proph given/why not?: Enoxaparin (Lovenox)SQ
[2016-09-12 11:25] VITALS: BP 111/67; PULSE 58; TEMP 36.5; O2SAT 99
--- NOTE | 2016-09-12 14:52 | Discharge Summary ---
Discharge Summary Date of Service Sep 12, 2016. Discharge Summary Admission Date: Sep 12, 2016 at 10:07 Discharge Date: Sep 12, 2016 Discharge Disposition: Home Principal Diagnosis: Periorbital cellulitis Consultations: Opthalmology Medication Reconciliation New Medications: Clindamycin Hcl (Cleocin) 300 Mg Cap 300 MG PO QID for 7 Days, #28 CAP Continued Medications: Fish Oil (Warren-3) 1 Ea Cap 1 CAP PO DAILY, CAP Discontinued Medications: Amoxicillin & Pot Clavulanate (Augmentin 875-125 mg) 1 Tab Tab 1 TAB PO BID for 7 Days, #14 TAB Hydrocodone/Acetaminophen 5MG/325MG (Hudson 5MG/325MG) Tab 1 TABLET PO Q4 PRN for Pain, #14 TAB Sulfa/Trimethoprim (Bactrim Ds 800MG/160MG) Tab 1 TAB PO BID, #14 TAB Discharge Exam Review of Systems: Constitutional: No chills, No fever Eyes: + discharge, + redness, No diplopia, No eye pain, No worsening of vision Respiratory: No cough, No sputum Cardiovascular: No chest pain, No orthopnea Abdomen: No diarrhea, No nausea, No pain, No vomiting Musculoskeletal: No joint pain, No muscle pain Genitourinary - Male: No dysuria, No hematuria, No urinary frequency Neurologic: No numbness/tingling, No paralysis, No weakness Physical Exam: General Appearance: WD/WN, no apparent distress Eyes: PERRL, EOMI, + abnormal sclerae exam (redness in right eye) Neck: supple, no adenopathy Respiratory/Chest: chest non-tender, lungs clear, normal breath sounds Cardiovascular: no edema, no gallop Abdomen / GI: non tender, soft Neurologic/Psychiatric: alert, oriented x 3 Hospital Course 26 y/o M who denies a significant PMH. He had a small stye on his R eye and then developed surrounding inflammation and scleral redness over the course of 3 -4 days. He states that he had a temp of 103 one day prior to admission. He had been to the ER 3 days [employer] and had been prescribed Augmentin and Bactrim but describes worsening pain and inflammation. He returned to the ER and was evaluated by ophthalmology who have advised on admission for IV antibiotics. A CT of the orbit revealed preorbital cellulitis. Pt dramatically improved on unasyn and bacitracin, dced on clindamycin 300 mg QID for 7 days. Total Time Spent: Greater than 30 minutes This includes examination of the patient, discharge planning, medication reconciliation, and communication with other providers. Discharge Instructions Please refer to the electronic Patient Visit Report (Discharge Instructions) for additional information.
== END 2016-09-12 12:30 | disposition home or self-care (01) | DRG 603 ==
LOC: ENRESERVDT → ENRESERVTM → C.EDB 15:30 → C.4E 21:49 → OBSVTOIN 09-12 10:07
PROVIDERS: ADMIT Internal Medicine; ATTEND Hospitalist
DX: L03.213 Periorbital cellulitis (principal); I10 Essential (primary) hypertension; Z87.891 Personal history of nicotine dependence; Z82.49 Family history of ischemic heart disease and other diseases of the circulatory system